=== PATIENT | female | born 1990 | race Two or more races ===

== ENCOUNTER 2019-04-03 16:17 | Emergency (ER) | payer SELFPAY ==
[~2019-04-03] VITALS: Ht 160 cm; Wt 49.9 kg
[2019-04-03] MEDS ORDERED: IV NORMAL SALINE 1000ML BAG 1,000 ML IV SCH (16:53)
--- NOTE | 2019-04-03 16:58 | PHYS DOC ---
Adult General Chief Complaint Chief Complaint: ABDOMINAL PAIN HPI HPI Patient is a 28 year old female who presents with right-sided lower abdominal pain for the last 3 days with fever or chills off and on. Patient states that she stays completely still the pain will lessen to a 3 but with movement or any jostling around the pain gets worse to an 8 or 9. Patient states she has not taken any pain medications. Patient states the pain is sharp and nonradiating. Patient denies dysuria, vaginal discharge, abnormal vaginal bleeding, vomiting, constipation, diarrhea, dizziness, syncope, chest pain, shortness of air, recent illness, numbness or tingling. Patient states she does have some nausea but has not vomited. (HEATHER LARSON APRN) Review of Systems Review of Systems Constitutional: Denies fever or chills [] Respiratory: Denies cough or shortness of breath [] Cardiovascular: No additional information not addressed in HPI [] GI: RLQ abdominal pain, nausea, denies vomiting, bloody stools or diarrhea [] : Denies dysuria or hematuria [] Musculoskeletal: Denies back pain or joint pain [] All other systems were reviewed and found to be within normal limits, except as documented in this note. (HEATHER LARSON APRN) Current Medications Current Medications Current Medications Medications (Trade) Dose Ordered Sig/Isidro Start Time Stop Time Status Last Admin Dose Admin Ceftriaxone Sodium (Rocephin) 1 gm 1X ONCE 04/03/19 18:30 04/03/19 18:31 DC 04/03/19 18:32 1 GM Fentanyl Citrate (Fentanyl 2ml Vial) 50 mcg 1X ONCE 04/03/19 17:00 04/03/19 17:27 DC 04/03/19 17:44 50 MCG Info (CONTRAST GIVEN -- Rx MONITORING) 1 each PRN DAILY PRN 04/03/19 18:30 04/03/19 19:42 DC Iohexol (Omnipaque 300 Mg/ml) 75 ml 1X ONCE 04/03/19 18:30 04/03/19 18:31 DC 04/03/19 18:49 75 ML Sodium Chloride 1,000 ml @ 1,000 mls/hr Q1H 04/03/19 16:53 04/03/19 17:52 DC 04/03/19 17:44 1,000 MLS/HR (ROXANNE KEARNS DO) Allergies Allergies Allergies Coded Allergies Type Severity Reaction Last Updated Verified No Known Drug Allergies 04/03/19 No (ROXANNE KEARNS DO) Physical Exam Physical Exam Constitutional: Well developed, well nourished, no acute distress, non-toxic appearance. [] Cardiovascular:Heart rate regular rhythm, no murmur [] Lungs & Thorax: Bilateral breath sounds clear to auscultation [] Abdomen: Bowel sounds normal, soft, RLQ tenderness, no masses, no pulsatile masses. [] Back: No tenderness, Right CVA tenderness. [] Neurologic: Alert and oriented X 3, normal motor function, normal sensory function, no focal deficits noted. [] Psychologic: Affect normal, judgement normal, mood normal. [] (HEATHER LARSON APRN) Current Patient Data Vital Signs Vital Signs Date Time Temp Pulse Resp B/P (MAP) Pulse Ox O2 Delivery O2 Flow Rate FiO2 04/03/19 18:50 78 133/84 (100) 98 Room Air 04/03/19 16:58 98.5 18 98.5 (ROXANNE KEARNS DO) Lab Values Laboratory Tests Test 04/03/19 16:48 04/03/19 17:30 Urine Collection Type Unknown Urine Color Yellow Urine Clarity Cloudy Urine pH 5.5 Urine Specific [place] 1.020 Urine Protein Negative mg/dL (NEG-TRACE) Urine Glucose (UA) Negative mg/dL (NEG) Urine Ketones (Stick) >=80 mg/dL (NEG) Urine Blood Small (NEG) Urine Nitrite Positive (NEG) Urine Bilirubin Negative (NEG) Urine Urobilinogen Dipstick 1.0 mg/dL (0.2 mg/dL) Urine Leukocyte Esterase Moderate (NEG) Urine RBC 3-5 /HPF (0-2) Urine WBC >40 /HPF (0-4) Urine Squamous Epithelial Cells Mod /LPF Urine Bacteria Moderate /HPF (0-FEW) Urine Mucus Marked /LPF POC Urine HCG, Qualitative Hcg negative (Negative) Urine Opiates Screen Neg (NEG) Urine Methadone Screen Neg (NEG) Urine Barbiturates Neg (NEG) Urine Phencyclidine Screen Neg (NEG) Urine Amphetamine/Methamphetamine Neg (NEG) Urine Benzodiazepines Screen Neg (NEG) Urine Cocaine Screen Neg (NEG) Urine Cannabinoids Screen Pos (NEG) Urine Ethyl Alcohol Neg (NEG) White Blood Count 15.4 x10^3/uL (4.0-11.0) H Red Blood Count 4.80 x10^6/uL (3.50-5.40) Hemoglobin 14.9 g/dL (12.0-15.5) Hematocrit 43.2 % (36.0-47.0) Mean Corpuscular Volume 90 fL (79-100) Mean Corpuscular Hemoglobin 31 pg (25-35) Mean Corpuscular Hemoglobin Concent 35 g/dL (31-37) Red Cell Distribution Width 14.1 % (11.5-14.5) Platelet Count 213 x10^3/uL (140-400) Neutrophils (%) (Auto) 80 % (31-73) H Lymphocytes (%) (Auto) 12 % (24-48) L Monocytes (%) (Auto) 8 % (0-9) Eosinophils (%) (Auto) 0 % (0-3) Basophils (%) (Auto) 0 % (0-3) Neutrophils # (Auto) 12.3 x10^3/uL (1.8-7.7) H Lymphocytes # (Auto) 1.8 x10^3/uL (1.0-4.8) Monocytes # (Auto) 1.2 x10^3/uL (0.0-1.1) H Eosinophils # (Auto) 0.1 x10^3/uL (0.0-0.7) Basophils # (Auto) 0.0 x10^3/uL (0.0-0.2) Sodium Level 136 mmol/L (136-145) Potassium Level 4.1 mmol/L (3.5-5.1) Chloride Level 101 mmol/L (98-107) Carbon Dioxide Level 24 mmol/L (21-32) Anion Gap 11 (6-14) Blood Urea Nitrogen 12 mg/dL (7-20) Creatinine 0.8 mg/dL (0.6-1.0) Estimated GFR (Cockcroft-Gault) 85.4 BUN/Creatinine Ratio 15 (6-20) Glucose Level 95 mg/dL (70-99) Calcium Level 9.5 mg/dL (8.5-10.1) Total Bilirubin 0.8 mg/dL (0.2-1.0) Aspartate Amino Transferase (AST) 14 U/L (15-37) L Alanine Aminotransferase (ALT) 15 U/L (14-59) Alkaline Phosphatase 72 U/L (46-116) Total Protein 8.3 g/dL (6.4-8.2) H Albumin 3.9 g/dL (3.4-5.0) Albumin/Globulin Ratio 0.9 (1.0-1.7) L Lipase 89 U/L (73-393) Laboratory Tests 04/03/19 17:30 Laboratory Tests 04/03/19 17:30 (ROXANNE KEARNS DO) Lab Values Laboratory Tests Test 04/03/19 16:48 04/03/19 17:30 Urine Collection Type Unknown Urine Color Yellow Urine Clarity Cloudy Urine pH 5.5 Urine Specific [place] 1.020 Urine Protein Negative mg/dL (NEG-TRACE) Urine Glucose (UA) Negative mg/dL (NEG) Urine Ketones (Stick) >=80 mg/dL (NEG) Urine Blood Small (NEG) Urine Nitrite Positive (NEG) Urine Bilirubin Negative (NEG) Urine Urobilinogen Dipstick 1.0 mg/dL (0.2 mg/dL) Urine Leukocyte Esterase Moderate (NEG) Urine RBC 3-5 /HPF (0-2) Urine WBC >40 /HPF (0-4) Urine Squamous Epithelial Cells Mod /LPF Urine Bacteria Moderate /HPF (0-FEW) Urine Mucus Marked /LPF POC Urine HCG, Qualitative Hcg negative (Negative) Urine Opiates Screen Neg (NEG) Urine Methadone Screen Neg (NEG) Urine Barbiturates Neg (NEG) Urine Phencyclidine Screen Neg (NEG) Urine Amphetamine/Methamphetamine Neg (NEG) Urine Benzodiazepines Screen Neg (NEG) Urine Cocaine Screen Neg (NEG) Urine Cannabinoids Screen Pos (NEG) Urine Ethyl Alcohol Neg (NEG) White Blood Count 15.4 x10^3/uL (4.0-11.0) H Red Blood Count 4.80 x10^6/uL (3.50-5.40) Hemoglobin 14.9 g/dL (12.0-15.5) Hematocrit 43.2 % (36.0-47.0) Mean Corpuscular Volume 90 fL (79-100) Mean Corpuscular Hemoglobin 31 pg (25-35) Mean Corpuscular Hemoglobin Concent 35 g/dL (31-37) Red Cell Distribution Width 14.1 % (11.5-14.5) Platelet Count 213 x10^3/uL (140-400) Neutrophils (%) (Auto) 80 % (31-73) H Lymphocytes (%) (Auto) 12 % (24-48) L Monocytes (%) (Auto) 8 % (0-9) Eosinophils (%) (Auto) 0 % (0-3) Basophils (%) (Auto) 0 % (0-3) Neutrophils # (Auto) 12.3 x10^3/uL (1.8-7.7) H Lymphocytes # (Auto) 1.8 x10^3/uL (1.0-4.8) Monocytes # (Auto) 1.2 x10^3/uL (0.0-1.1) H Eosinophils # (Auto) 0.1 x10^3/uL (0.0-0.7) Basophils # (Auto) 0.0 x10^3/uL (0.0-0.2) Sodium Level 136 mmol/L (136-145) Potassium Level 4.1 mmol/L (3.5-5.1) Chloride Level 101 mmol/L (98-107) Carbon Dioxide Level 24 mmol/L (21-32) Anion Gap 11 (6-14) Blood Urea Nitrogen 12 mg/dL (7-20) Creatinine 0.8 mg/dL (0.6-1.0) Estimated GFR (Cockcroft-Gault) 85.4 BUN/Creatinine Ratio 15 (6-20) Glucose Level 95 mg/dL (70-99) Calcium Level 9.5 mg/dL (8.5-10.1) Total Bilirubin 0.8 mg/dL (0.2-1.0) Aspartate Amino Transferase (AST) 14 U/L (15-37) L Alanine Aminotransferase (ALT) 15 U/L (14-59) Alkaline Phosphatase 72 U/L (46-116) Total Protein 8.3 g/dL (6.4-8.2) H Albumin 3.9 g/dL (3.4-5.0) Albumin/Globulin Ratio 0.9 (1.0-1.7) L Lipase 89 U/L (73-393) Laboratory Tests 04/03/19 17:30 Laboratory Tests 04/03/19 17:30 (HEATHER LARSON APRN) EKG EKG [] (HEATHER LARSON APRN) Radiology/Procedures Radiology/Procedures [] (HEATHER LARSON APRN) Impressions: [facility] [address] [place], [place] [id number] IMAGING REPORT Signed PATIENT: JENNIFER FRANKS ACCOUNT: [id number] : 1990 LOCATION: ER AGE: 28 SEX: F EXAM STATUS: REG ER ORD. PHYSICIAN: HEATHER LARSON APRN REASON: RLQ pain, OMNI 300, 75ml PROCEDURE: CT ABD PELV W/ IV CONTRST ONLY Exam: CT abdomen and pelvis with contrast INDICATION: Right lower quadrant pain TECHNIQUE: Sequential axial images through the abdomen and pelvis obtained following the administration of 75 mL of Omni 300 IV contrast. Sagittal and coronal reformatted images were reconstructed from the axial data and reviewed. Comparisons: None FINDINGS: Heart size is normal. No pericardial effusion. Visualized lung bases are clear. No pleural effusion. Liver, spleen, pancreas, gallbladder and adrenals are unremarkable. Kidneys demonstrate symmetric enhancement. No perinephric inflammation or hydronephrosis. No renal or ureteral calculi are identified. Bladder is decompressed not well evaluated. Uterus is not enlarged. No abnormal adnexal mass. Likely follicular changes within the ovaries bilaterally. Small amount of free fluid noted within the pelvis. There are air and fluid-filled distended but nondilated loops of small bowel noted within the left hemiabdomen. No evidence for obstruction. The remainder of the large and small bowel are unremarkable. Appendix is normal. No free intra-abdominal air. Abdominal aorta has a normal course and caliber. The abdominal vasculature is patent. No enlarged intra-abdominal lymph nodes are identified. No suspicious osseous lesions or acute fractures. IMPRESSION: 1. Small amount of free fluid in the pelvis which is nonspecific and may be physiologic. 2. Cystic change of the adnexa bilaterally, likely follicular changes in the ovaries not well characterized on CT. 3. Few air-fluid filled distended but nondilated loops of small bowel in the left hemiabdomen which is favored to represent enteritis. No evidence for obstruction. 4. Normal appendix Exposure: One or more of the following in the visualized dose reduction techniques were utilized for this examination: 1. Automated exposure control 2. Adjustment of the MA and/or KV according to patient size 3. Use of iterative of reconstructive technique Electronically signed by: Benito Delacruz MD (04/03/2019 7:08 PM) [facility] DICTATED and SIGNED BY: BENITO DELACRUZ MD DATE: 04/03/19 1908 (NEOHEATHERJULIA Quigley APRN) Course & Med Decision Making Course & Med Decision Making Patient is a 28 year old female who presents with right-sided lower abdominal pain for the last 3 days with fever or chills off and on. Patient states that she stays completely still the pain will lessen to a 3 but with movement or any jostling around the pain gets worse to an 8 or 9. Patient states she has not taken any pain medications. Patient states the pain is sharp and nonradiating. Patient denies dysuria, vaginal discharge, abnormal vaginal bleeding, vomiting, constipation, diarrhea, dizziness, syncope, chest pain, shortness of air, recent illness, numbness or tingling. Patient states she does have some nausea but has not vomited. Alert and oriented. Speaks in full clear sentences. Skin is pink warm and dry. Mucous membranes moist. No extremity edema. Abdomen is soft and tender to right lower quadrant only. No rebound tenderness. Bowel sounds present. Lungs are clear to auscultation all lobes. Ambulatory with a steady gait. Vital signs within normal limits. Right-sided CVA tenderness the patient states this is only slight tenderness. Patient's urinalysis shows nitrites and over 40 white blood cell and many raffy kocytes. Patient's white blood cell count is 15.4. Patient states she's been running fevers at home off and on but she's not had any fevers here. Because of these findings I will go ahead and give the patient 1 g of Rocephin IV. Patient continues to be afebrile in the ED. CT scan shows: 1. Small amount of free fluid in the pelvis which is nonspecific and may be physiologic. 2. Cystic change of the adnexa bilaterally, likely follicular changes in the ovaries not well characterized on CT. 3. Few air-fluid filled distended but nondilated loops of small bowel in the left hemiabdomen which is favored to represent enteritis. No evidence for obstruction. 4. Normal appendix Going to treat the patient with ciprofloxacin which can treat both enteritis and a urinary tract infection. Patient to follow-up with her primary care provider. Patient continues to be stable and her vital signs are stable. Patient is [id number]. Patient continues to be afebrile. (HEATHER LARSON APRN) Dragon Disclaimer Dragon Disclaimer This electronic medical record was generated, in whole or in part, using a voice recognition dictation system. (HEATHER LARSON APRN) Departure Departure Impression: Primary Impression: Urinary tract infection Disposition: HOME, SELF-CARE Condition: STABLE Patient Instructions: Urinary Tract Infection Additional Instructions: Follow-up primary care provider. Take medication as prescribed. If symptoms worsen come back to the emergency room. Take medication with food. Drink plenty of fluids. Scripts Ondansetron (ONDANSETRON ODT) 4 Mg Tab.rapdis 1 TAB PO PRN Q6-8HRS, #16 TAB Prov: HEATHER LARSON APRN 04/03/19 Ciprofloxacin Hcl (CIPRO) 500 Mg Tablet 1 TAB PO BID, #20 TAB Prov: HEATHER LARSON APRN 04/03/19 Attending Signature Attending Signature I have reviewed the PA/MANAGER HEALTH's note and plan of care. I was available for consultation as needed during the patient's visit in the emergency department. I agree with the clinical impression, plan, and disposition. (ROXANNE KEARNS DO) Problem Qualifiers Primary Impression: Urinary tract infection Urinary tract infection type: site unspecified Hematuria presence: with hematuria Qualified Codes: N39.0 - Urinary tract infection, site not specified; R31.9 - Hematuria, unspecified HEATHER LARSON APRN Apr 03, 2019 16:58 ROXANNE KEARNS DO Apr 04, 2019 04:03
[2019-04-03 17:00] LABS: BILIRUBIN,URINE NEGATIVE (NEG); CLARITY,URINE CLOUDY; COLOR,URINE YELLOW; NITRITE,URINE POSITIVE (NEG); PH,URINE 5.5; PROTEIN,URINE NEGATIVE (NEG-TRACE)
[2019-04-03] MEDS ORDERED: fentaNYL PF VIAL 100 MCG/2 ML VIAL IV ONE (17:00)
[2019-04-03 17:05] LABS: BARBITURATES NEG (NEG); BENZODIAZEPINES NEG (NEG); CANNABINOIDS POS (NEG); COCAINE NEG (NEG); METHADONE NEG (NEG); OPIATES NEG (NEG); PHENCYCLIDINE NEG (NEG)
[2019-04-03 17:06] LABS: AMPHETAMINE/METHAMPHETAMINE NEG (NEG); SQUAMOUS EPITHELIAL CELL,UR MOD /LPF
[2019-04-03 17:08] LABS: BACTERIA,URINE MODERATE /HPF (0-FEW); WBC,URINE >40 /HPF (0-4)
[2019-04-03 17:44] LABS: BASO % 0 % (0-3); EOS # 0.1 x10^3/uL (0.0-0.7); EOS % 0 % (0-3); HEMATOCRIT 43.2 % (36.0-47.0); HEMOGLOBIN 14.9 g/dL (12.0-15.5); LYMPH # 1.8 x10^3/uL (1.0-4.8); LYMPH % 12 % (24-48); MEAN CORPUSCULAR HEMOGLOBIN 31 pg (25-35); MEAN CORPUSCULAR HGB CONC 35 g/dL (31-37); MEAN CORPUSCULAR VOLUME 90 fL (79-100); MONO # 1.2 x10^3/uL (0.0-1.1); MONO % 8 % (0-9); NEUT # 12.3 x10^3/uL (1.8-7.7); NEUT % 80 % (31-73); PLATELET COUNT 213 x10^3/uL (140-400); RED CELL DISTRIBUTION WIDTH 14.1 % (11.5-14.5); WHITE BLOOD COUNT 15.4 x10^3/uL (4.0-11.0)
[2019-04-03 18:05] LABS: CALCIUM 9.5 mg/dL (8.5-10.1); CREATININE 0.8 mg/dL (0.6-1.0); GFR 85.4; POTASSIUM 4.1 mmol/L (3.5-5.1)
[2019-04-03 18:10] LABS: ALBUMIN 3.9 g/dL (3.4-5.0); ALBUMIN/GLOBULIN RATIO 0.9 (1.0-1.7); TOTAL BILIRUBIN 0.8 mg/dL (0.2-1.0); TOTAL PROTEIN 8.3 g/dL (6.4-8.2)
[2019-04-03] MEDS ORDERED: CONTRAST GIVEN. MC PRN (18:30)
[2019-04-03] MEDS ORDERED: IOHEXOL 300 MG/ML 100ML VIAL. IV ONE (18:30)
[2019-04-03] MEDS ORDERED: cefTRIAXone IV Push 1 GM VIAL. IVP ONE (18:30)
[2019-04-03 18:50] VITALS: BP 133/84
--- NOTE | 2019-04-03 19:10 | RAD ---
Exam: CT abdomen and pelvis with contrast INDICATION: Right lower quadrant pain TECHNIQUE: Sequential axial images through the abdomen and pelvis obtained following the administration of 75 mL of Omni 300 IV contrast. Sagittal and coronal reformatted images were reconstructed from the axial data and reviewed. Comparisons: None FINDINGS: Heart size is normal. No pericardial effusion. Visualized lung bases are clear. No pleural effusion. Liver, spleen, pancreas, gallbladder and adrenals are unremarkable. Kidneys demonstrate symmetric enhancement. No perinephric inflammation or hydronephrosis. No renal or ureteral calculi are identified. Bladder is decompressed not well evaluated. Uterus is not enlarged. No abnormal adnexal mass. Likely follicular changes within the ovaries bilaterally. Small amount of free fluid noted within the pelvis. There are air and fluid-filled distended but nondilated loops of small bowel noted within the left hemiabdomen. No evidence for obstruction. The remainder of the large and small bowel are unremarkable. Appendix is normal. No free intra-abdominal air. Abdominal aorta has a normal course and caliber. The abdominal vasculature is patent. No enlarged intra-abdominal lymph nodes are identified. No suspicious osseous lesions or acute fractures. IMPRESSION: 1. Small amount of free fluid in the pelvis which is nonspecific and may be physiologic. 2. Cystic change of the adnexa bilaterally, likely follicular changes in the ovaries not well characterized on CT. 3. Few air-fluid filled distended but nondilated loops of small bowel in the left hemiabdomen which is favored to represent enteritis. No evidence for obstruction. 4. Normal appendix Exposure: One or more of the following in the visualized dose reduction techniques were utilized for this examination: 1. Automated exposure control 2. Adjustment of the MA and/or KV according to patient size 3. Use of iterative of reconstructive technique Electronically signed by: Benito Gilliam MD (04/03/2019 7:08 PM) [facility]
[2019-04-03] MEDS ORDERED: CIPR500T94 PO (19:20)
[2019-04-03] MEDS ORDERED: ONDA4TAB12 PO (19:20)
== END 2019-04-03 19:42 | disposition home or self-care (01) ==
LOC: ER 16:17
DX: N39.0 Urinary tract infection, site not specified (principal); R11.0 Nausea; R50.9 Fever, unspecified
CPT/HCPCS: 36415; 74177; 80053; 80307; 81001; 81025; 83690; 85025; 87086; 96374; 96375; 99285; J0696; J3010; J7030; Q9967